=== PATIENT | female | born 1940 | race Caucasian/White ===

== ENCOUNTER → 2020-05-30 11:50 | Outpatient (CLI) | payer MEDICARE, SELFPAY ==
--- NOTE | 2020-05-30 | DI.CT.S_ITS ---
PROCEDURE: CT LE LT W CON INDICATIONS: Pain in left ankle and joints of left foot TECHNIQUE: Noncontrast 1-1.5 mm axial sections acquired from above the tibiotalar joint to the bottom of the calcaneus, with coronal and sagittal reformats. COMPARISON: [facility], CR, XR ANKLE 3 VIEWS WEIGHT BEARING LEFT, 05/15/2020, 14:33. [facility], CR, XR TOE(S) LEFT, 05/15/2020, 14:41. [facility], CT, CT LE RT WO CON, 05/30/2020, 12:07. FINDINGS: Image quality: Diagnostic. Bones: Post fixation changes are noted in distal fibular shaft and posterior lateral aspect of distal tibia. There is increased lucency surrounding surgical fixation hardware concerning for loosening. Oblique fracture involving distal fibular shaft is again seen with persistent diastasis at fracture site measures up to 4 millimeters in distance and corticated margin along fracture site concerning for nonunion. Osteoarthritic changes are noted throughout ankle, hindfoot, midfoot and forefoot joints. Finding is most prominent involving 1st MTP joint and articulation between 1st metatarsal head and sesamoids. No left foot fracture or dislocation. No gross suspicious intraosseous lesion. Well-defined plantar calcaneal enthesophyte is seen. Soft tissues: There is suggestion of moderate joint effusion. Thickened plantar fascia at its plantar calcaneal seen concerning for low-grade plantar fasciitis. Visualized ankle and foot tendons are grossly intact. IMPRESSION: 1. Fixation hardware are noted in distal fibular shaft and distal tibia with increased surrounding radiolucencies concerning for loosening of the hardware. 2. Persistent diastasis at distal fibular shaft fracture site concerning for nonunion. 3. Osteoarthritic changes throughout the ankle and foot. No other fracture or dislocation. No suspicious bony lesion. 4. Finding is concerning for low-grade plantar fasciitis at its plantar calcaneal insertion. Dictated by: Ted Peng M.D. on 05/30/2020 at 13:46 Approved by: Ted Peng M.D. on 05/30/2020 at 14:02
--- NOTE | 2020-05-30 12:00 | DI.CT.S_ITS ---
PROCEDURE: CT LE RT WO CON INDICATIONS: Pain in right ankle and joints of right foot TECHNIQUE: Noncontrast 1-1.5 mm axial sections acquired from above the tibiotalar joint to the bottom of the calcaneus, with coronal and sagittal reformats. COMPARISON: [facility], CR, XR ANKLE 3 VIEWS WEIGHT BEARING LEFT, 05/15/2020, 14:33. FINDINGS: Image quality: Excellent. Bones: Postsurgical changes are noted involving 2nd metatarsal head and 2nd proximal interphalangeal joint. No gross hardware loosening or failure is seen. Ankle and foot alignment is anatomic. Moderate osteoarthritic changes are noted involving tibiotalar joint with subcortical cystic area involving weight-bearing portion of talar dome concerning for small osteochondral lesions. Osteoarthritic changes are noted throughout right foot joints with joint space narrowing, subchondral sclerosis and marginal osteophyte formation more prominent at 1st MTP joint and involving articulation between 1st metatarsal head and sesamoids. No suspicious intraosseous lesion. Soft tissues: Plantar aponeurosis is intact. Achilles tendon is mildly thickened near its insertion of posterior calcaneus concerning for low-grade tendinosis. Mild ankle soft tissue swelling and edema is seen. Extensor, flexor, and peroneus tendons are grossly intact. IMPRESSION: 1. Osteoarthritic changes throughout the right ankle and foot as above. No fracture or dislocation. No suspicious intraosseous lesion. Concern for osteochondral lesions involving medial aspect of the talar dome weight-bearing portion. 2. Mildly thickened distal Achilles tendon concerning for low-grade tendinosis. No full-thickness ankle tendon per rupture. 3. Postsurgical changes in 2nd toe. No gross hardware complication. Dictated by: Ted Peng M.D. on 05/30/2020 at 13:16 Approved by: Ted Peng M.D. on 05/30/2020 at 13:30
== END ==
PROVIDERS: PCP Internal Medicine; Referring Provider Internal Medicine; Visit Provider Orthopaedic Surgery Foot and Ankle Surgery
DX: M25.572 Pain in left ankle and joints of left foot (principal)
CPT/HCPCS: 73700

== ENCOUNTER → 2020-10-24 14:54 | Outpatient (CLI) | payer OTHER, SELFPAY ==
[2020-10-24 15:28] LABS: COVID19 -Nasal RAPID Negative (Negative)
== END ==
PROVIDERS: PCP Internal Medicine; Visit Provider Physician Assistant
DX: Z20.822 Contact with and (suspected) exposure to COVID-19 (principal)
CPT/HCPCS: 87635; C9803

== ENCOUNTER 2020-10-26 06:04 | Day surgery (SDC) | payer OTHER, SELFPAY ==
[2020-10-26] VITALS (12 sets, daily range): BP systolic 126–181; BP diastolic 69–99; PULSE 70–75; RESP 12–16; TEMP 36.8–37; O2SAT 98–100; BMI 37.1
[2020-10-26] MEDS: LACTATED RINGERS 1,000 ML 100 ML IV ×2 (07:37→10:05)
[2020-10-26] MEDS: DEXTROSE 50 % IN WATER 25 GM/50 ML SYRINGE IV (07:39)
--- NOTE | 2020-10-26 07:45 | PM.PREOP ---
Pre-operative Note COVID-19 COVID-19 status: Negative Interval Note History & Physical reviewed/Exam performed by Physician: Yes Changes to H&P: No
[2020-10-26] MEDS: CEFAZOLIN 2 GM/100 ML FROZ.PIGGY IV (07:47)
--- NOTE | 2020-10-26 08:00 | DI.RAD.S_ITS ---
PROCEDURE: XR ANKLE LT MIN 3V INDICATIONS: HARDWARE REMOVAL, REPLACEMENT, SYNDESMOSIS REPAIR TECHNIQUE: 3 views of the ankle were acquired. COMPARISON: None. FINDINGS: Bones: Normal alignment after ORIF of a complex ankle fracture, with lateral fixation plate and transverse inter osseous screws establishing normal alignment at the ankle mortise joint. Soft tissues: No tibiotalar joint effusion. Achilles tendon appears normal. IMPRESSION: Normal alignment established after ORIF of previously documented left ankle fracture. Dictated by: Tee Charlton M.D. on 10/26/2020 at 16:52 Approved by: Tee Charlton M.D. on 10/26/2020 at 16:54
--- NOTE | 2020-10-26 08:26 | SUR.OPER ---
Supine on padded OR bed, head on pillow, arms secured on padded arm boards at <90 degrees abduction, legs uncrossed, safety belt at lower abdomen, tape over blanket over right lower leg. Left lower leg on folded blankets under drape and sterile bumps in control of the surgeon.
[2020-10-26] MEDS: BUPIVACAINE 0.25% W/ EPI (PF) 10 ML VIAL 20 ML INJ (08:44)
[2020-10-26] MEDS: OXYCODONE/ACETAMINOPHEN 5/325 TABLET 1 TAB PO (11:52)
--- NOTE | 2020-10-26 11:55 | P.OP_ITS ---
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 Revision procedure on syndesmosis left CPT code 85961 2. Repair fracture nonunion fibula left CPT code 24097 3. Removal implant deep left CPT code 54495 4. Repair ligament collateral left, deltoid ligament, secondary [id number] 5. Bone graft any area small dowel, left calcaneus CPT code 44096 -59 This procedure was performed with a modifier 22 for revision procedures: left ankle malunion with nonunion requiring expertise of Orthopedic foot and ankle fellowship trained surgeon. and required approximately twice along the standard ankle fracture Same procedure as scheduled: Yes Indications: The patient is an 80-year-old female had an history of an ankle fracture when she was in [place] in October of 2019 she had fixation with an intramedullary screw and 2 syndesmotic screws were placed. Unfortunately she went on to a nonunion and malunion with widening of her syndesmosis. She is indicated for revision fixation of her left fibula nonunion and syndesmotic disruption to avoid progression of her and diastasis hardware breakage a deformity and posttraumatic arthritis. Fortunately she has improved her hemoglobin A1c to 6.2. Her skin is also in good condition. She was indicated for revision of fixation with bone grafting of the fibular nonunion revision syndesmotic fixation possible deltoid ligament repair. The risks and benefits of the procedure have been discussed with the patient even opportunity to ask questions. The risks of surgery include but are not limited to infection, malunion, nonunion, persistence of pain, damage to nerves and blood vessels, posttraumatic arthritis, DVT, PE, cardiopulmonary complications and . The patient expressed a thorough understanding of the risks and benefits of surgery and has elected to proceed. Consent was signed in the office. She will be touchdown for no more than 20-40 lb weight-bearing for the 1st 2 weeks and then progress to weightbear as tolerated after 1st postop follow-up. We have arranged home health care to help her postoperatively. Surgeon: Nury Maria Click Yes if Unassisted: Yes Anesthesia Type: General, Peripheral nerve block and Local Operative Notes Findings: Distal fibula nonunion. Retained hardware intramedullary screw was prominent distally. This was removed. The attempted syndesmotic fixation had a buried screws that had sunken into the cortex transversing the oblique and fibula nonunion. This most this was a wide and fibrosed. Deltoid ligament was scarred with avulsion fragment in the medial clear space. This grossly widened with stress. Closure Type: primary Prosthetic devices, grafts, tissues, transplants, or devices: Fibula nonunion fixation: Arthrex 6 hole lateral locking fibula plate. 2.7 locking screws d istally. 3.5 cortical screws proximal Syndesmotic fixation : Tightrope XP, 2x 3.5 cortical screws Deltoid fixation: 3.5 corkscrew anchor Estimated Blood Loss (mL): 20 Blood products transfused: none Tourniquet time (min): 115 Procedure in detail: The patient was seen in the preoperative area the site of surgery was marked informed consent confirmed. The patient back to the operating room by the anesthesia team. A regional block was placed by the anesthesia team for postoperative pain control. Patient was positioned supine. All bony prominences well padded. Well-padded thigh tourniquet was placed. An SCD was placed on the contralateral lower extremity. The left lower extremities prepped and draped in the standard sterile fashion. Formal time-out procedure was performed confirming the patient's side and site of surgery administration of appropriate preoperative antibiotics. Implants were in the room. All were in agreement. Attention was turned to the calcaneal bone graft. Using an 8gauge jamshidi needle a small stab incision was made just anterior to the border of the Achilles at the lateral calcaneal tuberosity. This was confirmed under fluoroscopic imaging. The jamshidi eneedle was advanced through the cortex and then placed through several passes to retrieve a dowel cancellous bone for bone graft. Once this was completed the trocar was removed and a single nylon stitch was placed in the wound. This point the incisions were marked out on the skin the Esmarch was used for exsanguination the tourniquet was raised to 250 mm of mercury and stayed there for 1 hour and 55 minutes. Lateral incision was made over the fibula shaft this was taken down through the skin subcutaneous tissue. Periosteum was opened. Fibula was exposed including the nonunion site. This was debrided using a rongeur. It was grossly mobile. Next attention was turned to the distal end of the fibula where the distal tip of the intramedullary screw was exposed and removed. Next the C-arm was brought in to locate the 2 syndesmotic screws and these were buried by bone. The rongeur was used to remove the cortex in these areas the to small frag syndesmotic screws were then removed. The fibula and union was debrided using the rongeur and curette. The syndesmosis was exposed this was wide and it was cleared of scar tissue. At this point a bone graft was placed into the fibula nonunion site. Reduction clamp was used to reduce the fracture regaining rotation and length. This was pinned in place with provisional K-wires. X-rays were checked with fluoroscopy to confirm appropriate alignment. Then a 6 hole lateral locking plate from the Arthrex set was fit to the bone position appropriately. The bone was quite soft therefore a separate lag screw was not utilized but the plate was secured distally and proximally with BB tacks. Then locking screws were placed in the distal paddle. A nonlocking cortical screws were placed in the fibular shaft proximally reducing the fibular nonunion. At this point attention was turned to the medial aspect of the ankle and a separate incision was made from the medial malleolus towards the deltoid insertion. The medial gutter was cleaned out the deltoid was reflected off the medial malleolus. There was a separate avulsed bony fragment that was removed. Due to the quality of the tissue a corkscrew anchor was placed at the deltoid insertion in the at talus and this was brought through drill holes in the medial malleolus discs supplement the repair. This was completed with a 2 0 drill and a Daniels suture Passer to bring the sutures from the talus through the deltoid and then through the medial malleolus bone holes. These were then clamped and we returned our attention to the syndesmotic fixation. After the syndesmotic fixation reduction was obtained at the end of the case the deltoid was secured by tying it over the bone bridge and then reinforcing it with Vicryl Syndesmotic fixation. Once the fibula was out to length the syndesmosis was again further debrided of the scar. There was an open reduction of the syndesmosis was visualized a aptten of the Araceli sign anterior laterally. This was then held in place with thumb pressure followed by a temporary Yudi reduction clamp. This was confirmed on multiplanar fluoroscopy. Next the guidewire for the tightrope XP was placed followed by drilling and placement of the tight rope. Two additional 3.5 cortical screws were placed above the tight rope for additional syndesmotic fixation in this diabetic patient revision procedure. This provided excellent fixation stable alignment of the syndesmosis. Attention was turned to the deltoid ligament this was tied over the bone bridges as securing that was closing down of the medial clear space. The C-arm was brought in again and the final x-rays were taken followed by live fluoroscopy stress testing there was no widening on fluoroscopy and and no widening on clinical visual examination of the syndesmosis through the open reduction site. At this point the wound was irrigated. The remainder of the bone graft was packed around the nonunion site. The tourniquet was released hemostasis was achieved. The wound was closed in layers with a 2 O Vicryl, 4-0 Monocryl, 3-0 nylon suture. 10 cc of local anesthetic was supplemented the block medially around the saphenous distribution. Sterile dressings with Xeroform gauze and Webril were placed. Patient was placed into a well-padded use splint. Drapes removed patient was woken from anesthesia and taken to recovery room in good condition. There no immediate complications from this procedure. Complications: none Post-operative Condition: stable Disposition: PACU Plan for aftercare: Touch down or flatfoot weight-bearing weight of leg okay for balance. No more than 20-40 lb for the 1st 2 weeks. Elevate above the heart level as much as possible to help with swelling. Keep splint clean dry and intact. Follow-up in 2 weeks for wound check and x-rays. Will restart Xarelto on postoperative day 2
--- NOTE | 2020-10-26 12:39 | SUR.PHASEII ---
Pt given all dc instructions and rxs and verbalizes understanding, will go over all instructions and rxs with son as well. Pt wanting to sleep, Lights turned low and pt resting comfortably denies pain or nausea. Good range of motion with toes and sensation normal as well as cap refill
== END 2020-10-26 13:20 | disposition home or self-care (01) ==
PROVIDERS: PCP Internal Medicine; Referring Provider Internal Medicine; Visit Provider Orthopaedic Surgery Foot and Ankle Surgery
PROC: (CPT 27726; principal; 2020-10-26 07:45)
DX: S82.832K Other fracture of upper and lower end of left fibula, subsequent encounter for closed fracture with nonunion (principal); S93.432D Sprain of tibiofibular ligament of left ankle, subsequent encounter; E10.9 Type 1 diabetes mellitus without complications; S82.892P Other fracture of left lower leg, subsequent encounter for closed fracture with malunion; Z96.41 Presence of insulin pump (external) (internal); E66.9 Obesity, unspecified; F32.9 Major depressive disorder, single episode, unspecified; I48.91 Unspecified atrial fibrillation; Z79.01 Long term (current) use of anticoagulants
CPT/HCPCS: 27726; 27829; 27698; 20900; 73610; 76000; 82962; J0690; J2250; J2405; J2704; J3010

== ENCOUNTER 2021-07-03 16:22 | Emergency (ER) | payer OTHER, SELFPAY ==
[2021-07-03] VITALS (14 sets, daily range): BP systolic 146–197; BP diastolic 82–155; PULSE 96–116; RESP 16–29; TEMP 36.3; O2SAT 97–99; BMI 36.6
--- NOTE | 2021-07-03 16:54 | DI.RAD.S_ITS ---
PROCEDURE: XR CHEST 1V INDICATIONS: shortness of breath TECHNIQUE: One view of the chest was acquired. COMPARISON: None. FINDINGS: Surgical changes and devices: A cardiac pacemaker is seen with pulse generator in the left chest. Lungs and pleura: The lungs are mildly hyperexpanded, which can be seen in the setting of COPD. No focal airspace opacity is seen. There is mild blunting of the bilateral costophrenic angles, which may be related to hyperexpansion or trace pleural effusions. No pneumothorax is seen. Mediastinum: Mediastinal contours appear normal. Heart size is normal. Bones and chest wall: No suspicious bony lesions. Overlying soft tissues appear unremarkable. IMPRESSION: Mildly hyperexpanded lungs can be seen in the setting of COPD. No acute airspace opacity is seen. Questionable trace pleural effusions. Dictated by: Oscar Tejeda M.D. on 07/03/2021 at 17:18 Approved by: Oscar Tejeda M.D. on 07/03/2021 at 17:20
[2021-07-03 17:00] LABS: COVID19 -Nasal RAPID Negative (Negative)
[2021-07-03 17:08] LABS: Add Manual Diff / Slide Review NO; Basophils Absolute Auto 100 /uL (0-100); Basophils Percent Auto 1.1 % (0-2); Eosinophils Absolute Auto 200 /uL (0-450); Eosinophils Percent Auto 2.1 % (2-4); Hematocrit 36.6 % (36-46); Hemoglobin 11.7 g/dL (12.0-16.0); Lymphocytes Absolute Auto 1700 /uL (1100-4500); Lymphocytes Percent Auto 19.6 % (25-40); Mean Corpuscular Hemoglobin 27.8 PG (26-34); Mean Corpuscular Volume 86.9 fL (80-100); Monocytes Absolute Auto 900 /uL (0-900); Neutrophils Absolute Auto 6000 /uL (1500-7000); Neutrophils Percent Auto 67.2 % (50-75); Platelet Count 219 X10^3/uL (150-400); Red Blood Cell Count 4.21 X10^6/uL (4.0-5.2); Red Cell Distribution Width 15.7 % (11.6-14.8); White Blood Cell Count 8.9 X10^3/uL (4.5-11.0)
[2021-07-03 17:25] LABS: Alanine Aminotransferase 29 IU/L (<35); Albumin Globulin Ratio 1.3 (1.0-2.8); Alkaline Phosphatase 154 U/L (38-126); Aspartate Aminotransferase 31 IU/L (14-36); BUN Creatinine Ratio 17.6 (6-22); Bilirubin Total 0.4 mg/dL (0.2-1.3); Blood Urea Nitrogen 15 mg/dL (7-17); Carbon Dioxide 31 mmol/L (22-32); Chloride 105 mmol/L (98-107); Estimated Glomerular Filt Rate > 60.0 mL/min (>60); Glucose 68 mg/dL (80-110); HEMOLYSIS < 15 (0-50); Sodium 139 mmol/L (137-145)
[2021-07-03 17:48] LABS: Creatine Kinase 47 U/L (30-135); Lipase 14 U/L (23-300)
[2021-07-03 18:03] LABS: NT-proBNP (BNP-Adult 18+) 2720 pg/mL (<450); Troponin I < 0.012 ng/mL (0.01-0.034)
--- NOTE | 2021-07-03 18:50 | ED.SOB ---
HPI - SOB/Dyspnea General Chief Complaint: Shortness of Breath/Dyspnea Stated Complaint: came from Dr Mathis Upper resp symptoms Time Seen by Provider: 07/03/21 16:53 Source: patient Mode of arrival: Wheelchair Limitations: no limitations History of Present Illness HPI Narrative: Patient is a 81-year-old female history of atrial fibrillation on amiodarone and Xarelto diabetes. 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 It is actually Better when lying down. She maybe has noticed some increasing shortness of breath with exertion. She has no chest pain. She has had diarrhea but she has a history of IBS. She said yesterday was a bad day she had multiple episodes of diarrhea and a little bit this morning as well. But she is not out of the normal for her. She overall does not feel too bad and is anxious to go home with. However Cardiology was concerned for possible COVID versus congestive heart failure. She had a routine appointment with cardiology today, he was concered for incrased shortness of breath. Related Data Home Medications Medication Instructions Recorded Confirmed amiodarone 200 mg tablet 200 mg PO DAILY 10/26/20 10/26/20 atorvastatin 80 mg tablet 80 mg PO BEDTIME 10/26/20 10/26/20 cholecalciferol (vitamin D3) 25 25 mcg PO DAILY 10/26/20 10/26/20 mcg (1,000 unit) tablet (Vitamin D3) famotidine 20 mg tablet 20 mg PO DAILY 10/26/20 10/26/20 hydroxyzine HCl 25 mg tablet 25 mg PO QID 10/26/20 10/26/20 insulin lispro 100 unit/mL 1 sliding scale dose SUBCUT 10/26/20 10/26/20 subcutaneous cartridge (Humalog USEASDIRECTD U-100 Insulin) losartan 100 mg tablet 100 mg PO DAILY 10/26/20 10/26/20 metoprolol succinate 25 mg 25 mg PO DAILY 10/26/20 10/26/20 tablet,extended release 24 hr paroxetine HCl 20 mg tablet 20 mg PO DAILY 10/26/20 10/26/20 rivaroxaban 20 mg tablet (Xarelto) 20 mg PO DAILY 10/26/20 10/26/20 Previous Rx's Medication Instructions Recorded acetaminophen 500 mg tablet 1,000 mg PO Q8HR PRN #60 tab 10/26/20 docusate sodium 100 mg capsule 100 mg PO BID #30 cap 10/26/20 (Colace) gabapentin 300 mg capsule 300 mg PO TID #30 cap 10/26/20 oxycodone 5 mg tablet 5 - 10 mg PO Q4H PRN #42 tab 10/26/20 polyethylene glycol 3350 17 gram 17 g PO DAILY PRN #14 ea 10/26/20 oral powder packet (Miralax) furosemide 20 mg tablet (Lasix) 20 mg PO DAILY #3 tab 07/03/21 Allergies Allergy/AdvReac Type Severity Reaction Status Date / Time iodine Allergy Severe Swelling Verified 07/03/21 16:34 of Lip/Tongue/Throat shellfish derived Allergy Severe Swelling Verified 10/26/20 07:31 of Lip/Tongue/Throat Penicillins Allergy Intermediate Swelling Verified 07/03/21 16:34 of Lip/Tongue/Throat Review of Systems Review of Systems Narrative: GENERAL: Denies chills, fatigue, malaise, fever, sweats, travel HEENT: Denies sinus pain, ear pain, sore throat, difficulty swallowing, neck pain RESPIRATORY: See HPI CARDIOVASCULAR: AFib GASTROINTESTINAL: Denies nausea, vomiting, abdominal pain, diarrhea, constipation, melena. : Denies dysuria, frequency, incontinence, hematuria, urinary retention, flank pain. MUSCULOSKELETAL: Denies weakness, joint pain, or bony pain SKIN: No rash, no erythema, no pruritus NEUROLOGIC: Denies weakness, dizziness, headache, numbness, change in speech, confusion PSYCHIATRIC: No concerning psychosocial issues. 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 Coronary artery disease Depression Former smoker Hypertension Insulin pump in place Left sided sciatica Obesity Pacemaker Syndesmotic disruption of left ankle Thyroid disease Type 1 diabetes mellitus without complication Social History household members: other Smoking Status: Former smoker alcohol intake: current Smoking Status: Former smoker alcohol intake frequency: holidays/special occasions only Substance Use Type: marijuana Exam Initial Vital Signs Initial Vital Signs: Vital Signs Temperature 97.4 F L 07/03/21 16:34 Pulse Rate 96 H 07/03/21 16:34 Respiratory Rate 18 07/03/21 16:34 Blood Pressure 146/94 H 07/03/21 16:34 Pulse Oximetry 97 07/03/21 16:34 GENERAL: Alert 81-year-old female does not appear in any acute distress HEENT: Head atraumatic,EOMI, pupils reactive, face symmetric, moist mucous membranes CARDIOVASCULAR: Regular rate and rhythm without murmurs, rubs or gallops. RESPIRATORY: Crackles at bases, no tachypnea or significant respiratory distress ABDOMEN: Soft, nontender. Normoactive bowel sounds all 4 quadrants. No guarding or rebound. EXTREMITIES: Normal range of motion, no clubbing or edema. Neurovascularly intact NEUROLOGICAL: Alert and oriented x4.Normal gait and speech. SKIN: Warm, dry, no laceration, no petechiae, no rashes or lesions. Course Orders Ordered: ED Orders 07/03/21 16:40 COVID19 -Nasal swab/Pre-Proc Stat 07/03/21 16:54 XR chest 1V Stat EKG-12 Lead Stat 07/03/21 17:02 Complete Blood Count AUTO DIFF Stat Comprehensive Metabolic Panel Stat Lipase Stat NT-proBNP (BNP-Adult 18+) Stat Troponin & CK Cardiac Panel Stat Discontinued Medications Furosemide (Furosemide 40 Mg/4 Ml Vial) 20 mg IV NOW ONE Stop: 07/03/21 18:55 Last Admin: 07/03/21 19:03 Dose: 20 mg Documented by: PAPI Vital Signs Vital signs: Vital Signs - 8 hr 07/03/21 16:50 07/03/21 16:52 07/03/21 17:00 Pulse Rate 116 H 101 H 100 H Respiratory Rate Blood Pressure 174/90 H Pulse Oximetry 97 97 07/03/21 17:03 07/03/21 17:30 07/03/21 17:31 Pulse Rate 103 H 99 H 101 H Respiratory Rate 16 20 Blood Pressure 189/95 H 155/113 H Pulse Oximetry 97 97 97 07/03/21 18:00 07/03/21 18:01 07/03/21 18:30 Pulse Rate 104 H 105 H 103 H Respiratory Rate 21 19 25 H Blood Pressure 169/82 H Pulse Oximetry 98 98 99 07/03/21 18:31 07/03/21 19:00 07/03/21 19:01 Pulse Rate 101 H 101 H 104 H Respiratory Rate 29 H 19 20 Blood Pressure 188/110 H 197/155 H Pulse Oximetry 99 98 97 07/03/21 19:08 Pulse Rate 100 H Respiratory Rate 23 Blood Pressure 175/96 H Pulse Oximetry 97 MDM - SOB/Dyspnea Lab Data Result diagrams: 07/03/21 17:02 07/03/21 17:02 Labs: Lab Results 07/03/21 07/03/21 07/03/21 Range/Units 16:40 17:02 17:02 WBC 8.9 (4.5-11.0) X10^3/uL RBC 4.21 (4.0-5.2) X10^6/uL Hgb 11.7 L (12.0-16.0) g/dL Hct 36.6 (36-46) % MCV 86.9 (80-100) fL MCH 27.8 (26-34) PG MCHC 32.0 (30-36) % RDW 15.7 H (11.6-14.8) % Plt Count 219 (150-400) X10^3/uL Neut % (Auto) 67.2 (50-75) % Lymph % (Auto) 19.6 L (25-40) % [place] % (Auto) 10.0 (3-14) % Eos % (Auto) 2.1 (2-4) % Baso % (Auto) 1.1 (0-2) % Neut # (Auto) 6000 (4473-1056) /uL Lymph # (Auto) 1700 (8306-2313) /uL [place] # (Auto) 900 (0-900) /uL Eos # (Auto) 200 (0-450) /uL Baso # (Auto) 100 (0-100) /uL Sodium 139 (137-145) mmol/L Potassium 4.0 (3.4-5.1) mmol/L Chloride 105 (98-107) mmol/L Carbon Dioxide 31 (22-32) mmol/L BUN 15 (7-17) mg/dL Creatinine 0.85 (0.52-1.04) mg/dL Estimated GFR > 60.0 (>60) mL/min BUN/Creatinine Ratio 17.6 (6-22) Glucose 68 L (80-110) mg/dL Calcium 9.0 (8.4-10.2) mg/dL Total Bilirubin 0.4 (0.2-1.3) mg/dL AST 31 (14-36) IU/L ALT 29 (<35) IU/L Alkaline Phosphatase 154 H (38-126) U/L Total Creatine Kinase (30-135) U/L CK-MB (CK-2) CK-MB (CK-2) Rel Index Troponin I (0.01-0.034) ng/mL NT-Pro-B Natriuret Pep (<450) pg/mL Total Protein 7.0 (6.3-8.2) g/dL Albumin 4.0 (3.5-5.0) g/dL Globulin 3.0 (1.7-4.1) g/dL Albumin/Globulin Ratio 1.3 (1.0-2.8) Lipase (23-300) U/L SARS-CoV-2 (PCR) Negative (Negative) 07/03/21 Range/Units 17:02 WBC (4.5-11.0) X10^3/uL RBC (4.0-5.2) X10^6/uL Hgb (12.0-16.0) g/dL Hct (36-46) % MCV (80-100) fL MCH (26-34) PG MCHC (30-36) % RDW (11.6-14.8) % Plt Count (150-400) X10^3/uL Neut % (Auto) (50-75) % Lymph % (Auto) (25-40) % [place] % (Auto) (3-14) % Eos % (Auto) (2-4) % Baso % (Auto) (0-2) % Neut # (Auto) (5134-7247) /uL Lymph # (Auto) (3442-6477) /uL [place] # (Auto) (0-900) /uL Eos # (Auto) (0-450) /uL Baso # (Auto) (0-100) /uL Sodium (137-145) mmol/L Potassium (3.4-5.1) mmol/L Chloride (98-107) mmol/L Carbon Dioxide (22-32) mmol/L BUN (7-17) mg/dL Creatinine (0.52-1.04) mg/dL Estimated GFR (>60) mL/min BUN/Creatinine Ratio (6-22) Glucose (80-110) mg/dL Calcium (8.4-10.2) mg/dL Total Bilirubin (0.2-1.3) mg/dL AST (14-36) IU/L ALT (<35) IU/L Alkaline Phosphatase (38-126) U/L Total Creatine Kinase 47 (30-135) U/L CK-MB (CK-2) TNP CK-MB (CK-2) Rel Index TNP Troponin I < 0.012 (0.01-0.034) ng/mL NT-Pro-B Natriuret Pep 2720 H (<450) pg/mL Total Protein (6.3-8.2) g/dL Albumin (3.5-5.0) g/dL Globulin (1.7-4.1) g/dL Albumin/Globulin Ratio (1.0-2.8) Lipase 14 L (23-300) U/L SARS-CoV-2 (PCR) (Negative) Point of Care Testing Glucose POC 66 Imaging Data Chest x-ray: Radiologist's Impression: PROCEDURE:? XR CHEST 1V ? INDICATIONS:? shortness of breath ? TECHNIQUE:? One view of the chest was acquired.? ? COMPARISON:? None. ? FINDINGS:? ? Surgical changes and devices:? A cardiac pacemaker is seen with pulse generator in the left chest. ? Lungs and pleura:? The lungs are mildly hyperexpanded, which can be seen in the setting of COPD.? No focal airspace opacity is seen.? There is mild blunting of the bilateral costophrenic angles, which may be related to hyperexpansion or trace pleural effusions.? No pneumothorax is seen. ? Mediastinum:? Mediastinal contours appear normal.? Heart size is normal.? ? Bones and chest wall:? No suspicious bony lesions.? Overlying soft tissues appear unremarkable.? ? IMPRESSION:? Mildly hyperexpanded lungs can be seen in the setting of COPD.? No acute airspace opacity is seen.? Questionable trace pleural effusions. ? ? Dictated by: Oscar Tejeda M.D. on 07/03/2021 at 17:18 ? ? ECG Data Interpretation: Atrial flutter Rate [address] changes or T-wave inversions no priors to compare MDM Narrative Medical decision making narrative: Patient is experiencing some shortness of breath. She has an elevated BNP of 2700 no prior history of congestive heart failure. Has symptoms seem to be most consistent with congestive heart failure although she does not seem to be experiencing any orthopnea. She has very little peripheral edema as well. His she is given 1 dose of Lasix in the ED which does seem to help. This is unlikely pulmonary embolism although that was considered she is on Xarelto. She is not hypoxic. Overall does not seem to be dehydrated, BUN and creatinine are within normal limits. Discharge Plan Departure Patient Disposition: Home Clinical Impression: Congestive heart failure Qualifiers: Heart failure type: unspecified Heart failure chronicity: acute Qualified Code(s): I50.9 - Heart failure, unspecified Instructions: Heart Failure Activity Restrictions/Additional Instructions: *You have been diagnosed with congestive heart failure *What to do: At this time you have some extra fluid on your lungs. You will need to follow up with Dr. Mathis in regards to this have more testing. *Continue to take medications as directed Lasix 20 mg a day for or 3 days start tomorrow *Follow up with your primary care provider in 2-3 days *Return to ER if you should have increasing shortness of breath, chest pain, palpitation any new, worsening or concerning symptoms Prescriptions: New furosemide [Lasix] 20 mg tablet 20 mg PO DAILY Qty: 3 RF: 0 No Action Xarelto 20 mg Tablet 20 mg PO DAILY RF: 0 oxycodone 5 mg tablet 5 - 10 mg PO Q4H PRN (Reason: pain) Qty: 42 RF: 0 acetaminophen 500 mg tablet 1,000 mg PO Q8HR PRN (Reason: pain) Qty: 60 RF: 1 docusate sodium [Colace] 100 mg capsule 100 mg PO BID Qty: 30 RF: 1 polyethylene glycol 3350 [Miralax] 17 gram powder in packet 17 g PO DAILY PRN (Reason: constipation) Qty: 14 RF: 0 gabapentin 300 mg capsule 300 mg PO TID Qty: 30 RF: 1 cholecalciferol (vitamin D3) [Vitamin D3] 25 mcg (1,000 unit) Tablet 25 mcg PO DAILY RF: 0 paroxetine HCl 20 mg Tablet 20 mg PO DAILY RF: 0 metoprolol succinate 25 mg Tablet Extended Release 24 Hr 25 mg PO DAILY RF: 0 losartan 100 mg Tablet 100 mg PO DAILY RF: 0 hydroxyzine HCl 25 mg Tablet 25 mg PO QID RF: 0 Humalog U-100 Insulin 100 unit/mL Cartridge 1 sliding scale dose SUBCUT USEASDIRECTD RF: 0 famotidine 20 mg Tablet 20 mg PO DAILY RF: 0 atorvastatin 80 mg Tablet 80 mg PO BEDTIME RF: 0 amiodarone 200 mg Tablet 200 mg PO DAILY RF: 0 Referrals: Harvey Lala MD [Primary Care Provider] -
[2021-07-03] MEDS: FUROSEMIDE 40 MG/4 ML VIAL 20 MG IV (19:03)
== END 2021-07-03 19:56 | disposition home or self-care (01) ==
PROVIDERS: Emergency Medicine; Emergency Provider Emergency Medicine; PCP Internal Medicine
DX: I50.9 Heart failure, unspecified (principal); R19.7 Diarrhea, unspecified; Z20.822 Contact with and (suspected) exposure to COVID-19
CPT/HCPCS: 36415; 71045; 80053; 82550; 82962; 83690; 83880; 84484; 85025; 87635; 93005; 93010; 96374; 99284; C9803; J1940

== ENCOUNTER 2022-02-26 14:33 | Emergency (ER) | payer OTHER, SELFPAY ==
--- NOTE | 2022-02-26 14:37 | DI.RAD.S_ITS ---
PROCEDURE: XR CHEST 1V INDICATIONS: chest pain TECHNIQUE: One view of the chest was acquired. COMPARISON: [facility], CT, CT CHEST WITHOUT CONTRAST, 09/23/2021, 19:16. [facility], CR, XR CHEST 1V, 07/03/2021, 17:02. FINDINGS: Surgical changes and devices: Left pacemaker with multiple leads. A 2nd electronic device over the left chest. Lungs and pleura: Lungs appear clear. No pleural effusions or pneumothorax. Mediastinum: Mediastinal contours appear unchanged. Heart size appears prominent. Bones and chest wall: No suspicious bony lesions. Overlying soft tissues appear unremarkable. IMPRESSION: No acute cardiopulmonary abnormality. The previously seen right lower lobe pulmonary nodule is not appreciated. Follow-up CT and/or PET were previously recommended. This could be performed as an outpatient. Dictated by: Ganga Dejesus M.D. on 02/26/2022 at 15:31 Approved by: Ganga Dejesus M.D. on 02/26/2022 at 15:34
[2022-02-26 14:45] VITALS: BP 177/81; PULSE 70; RESP 16; TEMP 36.6; O2SAT 99; BMI 33.9
--- NOTE | 2022-02-26 14:51 | DI.RAD.S_ITS ---
PROCEDURE: XR TOE RT MIN 2V INDICATIONS: fall TECHNIQUE: 3 views of the 2nd toe(s) acquired. COMPARISON: [facility], ANDREW, XR ANKLE 3 VIEWS WEIGHT BEARING LEFT, 03/20/2021, 11:23. [facility] [place], CR, XR TOE(S) LEFT, 05/15/2020, 14:41. FINDINGS: Bones: 2nd digit distal phalanx corner fracture seen on the lateral projection. Mild displacement. No dislocations. No suspicious bony lesions. Screw transversing the 2nd digit PIP joint. Screw within the 2nd digit metatarsal head. Soft tissues: No suspicious soft tissue densities. IMPRESSION: 2nd digit distal phalanx corner fracture. Dictated by: Ganga Dejesus M.D. on 02/26/2022 at 15:38 Approved by: Ganga Dejesus M.D. on 02/26/2022 at 15:40
--- NOTE | 2022-02-26 14:51 | DI.RAD.S_ITS ---
PROCEDURE: XR WRIST RT MIN 3V INDICATIONS: fall TECHNIQUE: 4 views of the wrist were acquired. COMPARISON: None. FINDINGS: Bones: No fractures or dislocations. No suspicious bony lesions. Degenerative change most pronounced at the 1st CMC joint. Scaphoid view: Intact. Soft tissues: No suspicious soft tissue calcifications. Vascular calcifications. IMPRESSION: No acute osseous abnormality. Dictated by: Ganga Dejesus M.D. on 02/26/2022 at 15:35 Approved by: Ganga Dejesus M.D. on 02/26/2022 at 15:38
--- NOTE | 2022-02-26 14:54 | DI.RAD.S_ITS ---
PROCEDURE: XR FOREARM RT 2V INDICATIONS: fall TECHNIQUE: 2 views of the forearm were acquired. COMPARISON: None. FINDINGS: Bones: No fractures or dislocations. No suspicious bony lesions. Degenerative change at the 1st CMC joint. Soft tissues: No suspicious soft tissue calcifications or masses. IMPRESSION: No acute osseous abnormality. If there is pain at the elbow joint consider dedicated elbow radiographs. Dictated by: Ganga Dejesus M.D. on 02/26/2022 at 15:34 Approved by: Ganga Dejesus M.D. on 02/26/2022 at 15:35
--- NOTE | 2022-02-26 14:55 | PC.NURSE ---
ice pack applied in triage
[2022-02-26 16:16] VITALS: PULSE 70; O2SAT 99
[2022-02-26 16:18] VITALS: BP 160/75; PULSE 70; O2SAT 98
[2022-02-26 16:30] VITALS: BP 153/81; PULSE 70; O2SAT 99
[2022-02-26] MEDS: LIDOCAINE PATCH 1 EACH ADH..PATCH TOP (16:58)
[2022-02-26] MEDS: ACETAMINOPHEN 325 MG TABLET 975 MG PO (16:59)
[2022-02-26 17:00] VITALS: PULSE 70; O2SAT 99
[2022-02-26 17:14] VITALS: BP 167/91; PULSE 59; O2SAT 97
--- NOTE | 2022-02-26 17:56 | ED.TRAUMA ---
HPI - Trauma <Rosalie Neves [employer] - Last Filed: 02/26/22 20:00> General Chief Complaint: Extremity Injury, Upper Stated Complaint: Fell and hurt right arm on Thursday- takes thinners Time Seen by Provider: 02/26/22 16:11 Source: patient Mode of arrival: Ambulatory History of Present Illness HPI narrative: This is a 81-year-old female who is anticoagulated on Eliquis presents to the emergency department after a fall she had two days ago where she fell onto right arm injuring her right forearm, wrist right 2nd toe had swelling with ecchymosis of her right arm and 2nd toe since this happened. She denies any muscle aches or muscle spasms, denies any sensation changes, she endorses slightly decreased wrist flexion and extension due to her swollen forearm. She denies any open wounds, she denies hitting her head or having any emesis afterwards. Patient denies any other injuries, states that she is ambulatory, she has a history of diabetes and sees for Podiatry. She denies any new weakness of her right arm Related Data Home Medications Medication Instructions Recorded Confirmed amiodarone 200 mg tablet 200 mg PO DAILY 10/26/20 10/26/20 atorvastatin 80 mg tablet 80 mg PO BEDTIME 10/26/20 10/26/20 cholecalciferol (vitamin D3) 25 25 mcg PO DAILY 10/26/20 10/26/20 mcg (1,000 unit) tablet (Vitamin D3) famotidine 20 mg tablet 20 mg PO DAILY 10/26/20 10/26/20 hydroxyzine HCl 25 mg tablet 25 mg PO QID 10/26/20 10/26/20 insulin lispro 100 unit/mL 1 sliding scale dose SUBCUT 10/26/20 10/26/20 subcutaneous cartridge (Humalog USEASDIRECTD U-100 Insulin) losartan 100 mg tablet 100 mg PO DAILY 10/26/20 10/26/20 metoprolol succinate 25 mg 25 mg PO DAILY 10/26/20 10/26/20 tablet,extended release 24 hr paroxetine HCl 20 mg tablet 20 mg PO DAILY 10/26/20 10/26/20 rivaroxaban 20 mg tablet (Xarelto) 20 mg PO DAILY 10/26/20 10/26/20 Previous Rx's Medication Instructions Recorded acetaminophen 500 mg tablet 1,000 mg PO Q8HR PRN #60 tab 10/26/20 docusate sodium 100 mg capsule 100 mg PO BID #30 cap 10/26/20 (Colace) gabapentin 300 mg capsule 300 mg PO TID #30 cap 10/26/20 oxycodone 5 mg tablet 5 - 10 mg PO Q4H PRN #42 tab 10/26/20 polyethylene glycol 3350 17 gram 17 g PO DAILY PRN #14 ea 10/26/20 oral powder packet (Miralax) furosemide 20 mg tablet (Lasix) 20 mg PO DAILY #3 tab 07/03/21 diclofenac sodium 3 % topical gel 1 applic TOPICAL BID PRN #100 g 02/26/22 lidocaine 5 % topical patch 1 patch TOPICAL DAILY #15 ea 02/26/22 Allergies Allergy/AdvReac Type Severity Reaction Status Date / Time iodine Allergy Severe Swelling Verified 02/26/22 14:49 of Lip/Tongue/Throat shellfish derived Allergy Severe Swelling Verified 02/26/22 14:49 of Lip/Tongue/Throat Penicillins Allergy Intermediate Swelling Verified 02/26/22 14:49 of Lip/Tongue/Throat Review of Systems <VIKKI Rouse - Last Filed: 02/26/22 20:00> Review of Systems Narrative: General: denies fever, chills Head/Neck: denies headache, neck pain Eyes: denies visual changes, eye pain Cardio: denies chest pain, palpitations Respiratory: denies shortness of breath, cough GI: denies abdominal pain, nausea, vomiting, or diarrhea : denies dysuria, hematuria or flank pain MSK: denies new joint pain, muscle weakness, endorses ecchymosis, tenderness and edema to right forearm, 2nd toe right foot Skin: denies rash, itching or wound Neuro: denies numbness, tingling, dizziness Patient History <VIKKI Rouse - Last Filed: 02/26/22 20:00> Medical History Afib Arthritis 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 General: cooperative, comfortable, in no acute distress, well groomed Head: atraumatic, symmetrical facial expressions Neck: supple Eyes: equal round and reactive, EOMI, conjunctiva normal Nose: nares patent, no rhinorrhea Mouth/Throat: moist mucus membranes Cardiovascular: regular rate and rhythm, no peripheral edema, warm extremities Respiratory: normal effort, able to speak in complete sentences, no audible wheezing, stridor, or rales. No retractions or tachypnea. GI: abdomen soft, non-tender to palpation, non-distended, no masses, no exquisite tenderness with exam, without guarding or rebound. MSK: moves all extremities, neurovascularly intact, no weakness, normal tone, right forearm with moderate amount of ecchymosis on the anterior aspect of her forearm from her elbow to her wrist, wrist extension is moving mildly decreased due to pain and edema, wrist flexion is intact full range of motion. Patient has mild edema, no erythema or fluctuance, no streaking, tenderness with some palpable hematomas over the medial wrist on the palmar aspect, radial pulse 2 +, cap refill in her fingers less than 2 seconds, no tenderness over metacarpals, no tenderness over distal radius or ulna, no tenderness over olecranon, elbow flexion extension intact without deficit, no tenderness to right shoulder, full range of motion of right shoulder, right 2nd toe with distal ecchymosis and mild erythema, patient has history of pin in 2nd toe, toe does not bend. Skin: brisk capillary refill, no rash, no erythema Neuro: normal speech and cognition, A&O x3 Psych: mental status is grossly normal, congruent mood, normal affect, pleasant and cooperative Initial Vital Signs Initial Vital Signs: Vital Signs Temperature 97.9 F 02/26/22 14:45 Pulse Rate 70 02/26/22 14:45 Respiratory Rate 16 02/26/22 14:45 Blood Pressure 177/81 H 02/26/22 14:45 Pulse Oximetry 99 02/26/22 14:45 <Menea Shay DO - Last Filed: 03/06/22 07:31> Initial Vital Signs Initial Vital Signs: Vital Signs Temperature 97.9 F 02/26/22 14:45 Pulse Rate 70 02/26/22 14:45 Respiratory Rate 16 02/26/22 14:45 Blood Pressure 177/81 H 02/26/22 14:45 Pulse Oximetry 99 02/26/22 14:45 Procedures <VIKKI Rouse - Last Filed: 02/26/22 20:00> Orthopedic Splinting/Casting Injury #1: Side: right Upper Extremity Injury Location: elbow, forearm, wrist and hand Upper Extremity Immobilizer: sling/shoulder immobilizer and thumb spica Lower Extremity Immobilizer: post-op shoe Post splinting neuro exam: intact Post splinting vascular exam: intact Placed by: Nursing Course <VIKKI Rouse - Last Filed: 02/26/22 20:00> Orders Ordered: Discontinued Medications Acetaminophen (Acetaminophen 325 Mg Tablet) 975 mg PO NOW ONE Stop: 02/26/22 16:46 Last Admin: 02/26/22 16:59 Dose: 975 mg Documented by: KARIME Lidocaine (Lidocaine Patch 1 Each Adh..Patch) 1 each TOP NOW ONE Stop: 02/26/22 16:46 Last Admin: 02/26/22 16:58 Dose: 1 each Documented by: KARIME Vital Signs Vital signs: Vital Signs - 8 hr 02/26/22 14:45 02/26/22 16:16 02/26/22 16:18 Temperature 97.9 F Pulse Rate 70 70 70 Respiratory Rate 16 Blood Pressure 177/81 H 160/75 H Pulse Oximetry 99 99 98 02/26/22 16:30 02/26/22 17:00 02/26/22 17:14 Temperature Pulse Rate 70 70 59 L Respiratory Rate Blood Pressure 153/81 H 167/91 H Pulse Oximetry 99 99 97 <Meena Shay DO - Last Filed: 03/06/22 07:31> Orders Ordered: Discontinued Medications Acetaminophen (Acetaminophen 325 Mg Tablet) 975 mg PO NOW ONE Stop: 02/26/22 16:46 Last Admin: 02/26/22 16:59 Dose: 975 mg Documented by: KARIME Lidocaine (Lidocaine Patch 1 Each Adh..Patch) 1 each TOP NOW ONE Stop: 02/26/22 16:46 Last Admin: 02/26/22 16:58 Dose: 1 each Documented by: KARIME Vital Signs Vital signs: Vital Signs - 8 hr 02/26/22 14:45 02/26/22 16:16 02/26/22 16:18 Temperature 97.9 F Pulse Rate 70 70 70 Respiratory Rate 16 Blood Pressure 177/81 H 160/75 H Pulse Oximetry 99 99 98 02/26/22 16:30 02/26/22 17:00 02/26/22 17:14 Temperature Pulse Rate 70 70 59 L Respiratory Rate Blood Pressure 153/81 H 167/91 H Pulse Oximetry 99 99 97 MDM - Trauma <Rosalie Neves [facility] - Last Filed: 02/26/22 20:00> Imaging Data Extremity x-ray #1: Radiologist's Impression: PROCEDURE:? XR FOREARM RT 2V ? INDICATIONS:? fall ? TECHNIQUE:? 2 views of the forearm were acquired.? ? COMPARISON:? None. ? FINDINGS:? ? Bones:? No fractures or dislocations.? No suspicious bony lesions.? Degenerative change at the 1st CMC joint.? ? Soft tissues:? No suspicious soft tissue calcifications or masses.? ? ? IMPRESSION:? No acute osseous abnormality. ? If there is pain at the elbow joint consider dedicated elbow radiographs. ? ? ? Dictated by: Ganga Dejesus M.D. on 02/26/2022 at 15:34 ? ? Approved by: Ganga Dejesus M.D. on 02/26/2022 at 15:35 ? Extremity x-ray #2: Radiologist's Impression: PROCEDURE:? XR WRIST RT MIN 3V ? INDICATIONS: fall ? TECHNIQUE:? 4 views of the wrist were acquired.? ? COMPARISON:? None. ? FINDINGS:? ? Bones:? No fractures or dislocations.? No suspicious bony lesions.? Degenerative change most pronounced at the 1st CMC joint.? ? Scaphoid view:? Intact. ? Soft tissues:? No suspicious soft tissue calcifications.? Vascular calcifications.? ? IMPRESSION:? No acute osseous abnormality. ? ? Dictated by: Ganga Dejesus M.D. on 02/26/2022 at 15:35 ? ? Approved by: Ganga Dejesus M.D. on 02/26/2022 at 15:38 ? Extremity x-ray #3: Radiologist's Impression: PROCEDURE:? XR TOE RT MIN 2V ? INDICATIONS:? fall ? TECHNIQUE:? 3 views of the 2nd toe(s) acquired.? ? COMPARISON:? [facility] [place], CR, XR ANKLE 3 VIEWS WEIGHT BEARING LEFT, 03/20/2021, 11:23.? [facility] [place], CR, XR TOE(S) LEFT, 05/15/2020, 14:41. ? FINDINGS:? ? Bones:? 2nd digit distal phalanx corner fracture seen on the lateral projection.? Mild displacement.? No dislocations.? No suspicious bony lesions.? Screw transversing the 2nd digit PIP joint.? Screw within the 2nd digit metatarsal head.? ? Soft tissues:? No suspicious soft tissue densities.? ? IMPRESSION:? 2nd digit distal phalanx corner fracture. ? ? Dictated by: Ganga Dejesus M.D. on 02/26/2022 at 15:38 ? ? Approved by: Ganga Dejesus M.D. on 02/26/2022 at 15:40 ? Chest x-ray: Radiologist's Impression: PROCEDURE:? XR CHEST 1V ? INDICATIONS:? chest pain ? TECHNIQUE:? One view of the chest was acquired.? ? COMPARISON:? [facility] [place], CT, CT CHEST WITHOUT CONTRAST, 09/23/2021, 19:16.? [facility], CR, XR CHEST 1V, 07/03/2021, 17:02. ? FINDINGS:? ? Surgical changes and devices:? Left pacemaker with multiple leads.? A 2nd electronic device over the left chest. ? Lungs and pleura:? Lungs appear clear.? No pleural effusions or pneumothorax.? ? Mediastinum:? Mediastinal contours appear unchanged.? Heart size appears prominent.? ? Bones and chest wall:? No suspicious bony lesions.? Overlying soft tissues appear unremarkable.? ? IMPRESSION:? No acute cardiopulmonary abnormality. ? The previously seen right lower lobe pulmonary nodule is not appreciated.? Follow-up CT and/or PET were previously recommended.? This could be performed as an outpatient. ? ? ? Dictated by: Ganga Dejesus M.D. on 02/26/2022 at 15:31 ? ? Approved by: Ganga Dejesus M.D. on 02/26/2022 at 15:34 ? [facility] Narrative Medical decision making narrative: This is an 81-year-old female who presents to the emergency department two days after a ground level fall onto her right arm and right side after she tripped on a dog leash and fell onto her right wrist. Patient is on Eliquis, denies hitting her head or having any neck pain, she did not loss consciousness, she denies shortness of breath, difficulty breathing, chest pain, or difficulty ambulating. Patient has ecchymosis of her right forearm on the anterior aspect from the wrist up to proximal forearm without erythema, fluctuance, or deformity. X-ray of right wrist, forearm, and chest are all without any fractures or acute abnormality. Patient's right foot x-ray is positive for a distal phalanx corner fracture of the 2nd digit. Patient has a history of diabetes and sees Dr. Wright from Podiatry. Patient was fitted in a postop shoe, she also was fitted in a right wrist thumb spica Velcro wrist splint, sling for elevation, and encouraged to follow-up with podiatry and with orthopedics in one week if her right forearm is not improving. She does have a moderate amount of ecchymosis to the right forearm but it appears to be improving without any large hematomas or fluid collections. She does not have any tenderness over the metacarpals, no tenderness over the scaphoid or distal radius/ulna, noted tenderness over proximal radius, no tenderness over olecranon. Encourage close follow-up with PCP as needed, and orthopedics follow-up for right wrist/forearm injury if not better in one week. Patient is appropriate and amenable to discharge home. Vital signs are stable on repeat examination is unremarkable. Patient has been informed of results. Patient has been given strict return to ER precautions for any new or worsening symptoms. Patient understands to follow up closely with outpatient providers as instructed. Patient understands plan and agrees to discharge home. All questions and concerns answered at this time. Discharge Plan Departure Patient Disposition: Home Clinical Impression: Fall Qualifiers: Encounter type: initial encounter Qualified Code(s): W19.XXXA - Unspecified fall, initial encounter Contusion Qualifiers: Encounter type: initial encounter Contusion area: forearm Laterality: right Qualified Code(s): S50.11XA - Contusion of right forearm, initial encounter Right wrist sprain Qualifiers: Encounter type: initial encounter Qualified Code(s): S63.501A - Unspecified sprain of right wrist, initial encounter Fracture of toe of right foot Qualifiers: Encounter type: initial encounter Toe: lesser toe Fracture type: closed Phalanx: distal Fracture alignment: nondisplaced Qualified Code(s): S92.534A - Nondisplaced fracture of distal phalanx of right lesser toe(s), initial encounter for closed fracture Instructions: Contusion, DI for Wrist Sprain, DI for Toe Fracture, DI for Elbow Pain Activity Restrictions/Additional Instructions: *You have been diagnosed with a large bruise on your right forearm from your fall, you have edema and tenderness over the ligaments and tendons reducing your mobility and strength. Please use topical Voltaren gel, Tylenol, and tramadol needed for your pain, lidocaine patches may be helpful as well. For your toe, please wear the postop shoe with a to keep your toes warm, follow-up with your tar worker next week, to the emergency department if your have any any worsening of your right arm swelling, pain, redness, or if you have reduced mobility beyond where it is today. Please call [facility] for an appointment if you are having worsening of your symptoms or are no better after one week. I hope that you feel better soon. *What to do: *Please continue to take your regular medications as directed. [ x] New medication prescriptions sent to your pharmacy: [[facility] ] [ ] New medication written as a paper prescription [ ] No new medications given *Please follow up with your primary care provider in 2-3 days, call for an appointment. Let them know you were seen in the Emergency Department and that we asked that you be seen for follow-up. We will electronically transmit a record of today's note if your PCP is in our system *If you do not have a primary care provider please contact [phone] to establish care with one of the [facility] primary care providers. *Return to Emergency Department if you should have any new, worsening or concerning symptoms, such as [fever greater than 101F, chills, worsening pain, persistent vomiting or other bothersome symptoms] Prescriptions: New diclofenac sodium 3 % gel 1 applic topical BID PRN (Reason: pain) Qty: 100 0RF lidocaine 5 % adhesive patch,medicated 1 patch topical DAILY Qty: 15 0RF Rx Instructions: leave on most painful area for up to 12 hrs No Action Xarelto 20 mg Tablet 20 mg PO DAILY 0RF oxycodone 5 mg tablet 5 - 10 mg PO Q4H PRN (Reason: pain) Qty: 42 0RF Rx Instructions: exempt postop acetaminophen 500 mg tablet 1,000 mg PO Q8HR PRN (Reason: pain) Qty: 60 1RF docusate sodium [Colace] 100 mg capsule 100 mg PO BID Qty: 30 1RF polyethylene glycol 3350 [Miralax] 17 gram powder in packet 17 g PO DAILY PRN (Reason: constipation) Qty: 14 0RF gabapentin 300 mg capsule 300 mg PO TID Qty: 30 1RF cholecalciferol (vitamin D3) [Vitamin D3] 25 mcg (1,000 unit) Tablet 25 mcg PO DAILY 0RF paroxetine HCl 20 mg Tablet 20 mg PO DAILY 0RF metoprolol succinate 25 mg Tablet Extended Release 24 Hr 25 mg PO DAILY 0RF losartan 100 mg Tablet 100 mg PO DAILY 0RF hydroxyzine HCl 25 mg Tablet 25 mg PO QID 0RF Humalog U-100 Insulin 100 unit/mL Cartridge 1 sliding scale dose SUBCUT USEASDIRECTD 0RF famotidine 20 mg Tablet 20 mg PO DAILY 0RF atorvastatin 80 mg Tablet 80 mg PO BEDTIME 0RF amiodarone 200 mg Tablet 200 mg PO DAILY 0RF furosemide [Lasix] 20 mg tablet 20 mg PO DAILY Qty: 3 0RF Referrals: [facility] [Provider Group] Derek Damico MD [Primary Care Provider] - Bernardo Wright DPM [Physician] - 5-7 days <Meena Shay DO - Last Filed: 03/06/22 07:31> Cosign ED Attending Cosignature Attestation: I was immediately available in the department for consultation. Documentation has been reviewed.
== END 2022-02-26 18:00 | disposition home or self-care (01) ==
PROVIDERS: Emergency Provider Nurse Practitioner Critical Care Medicine; PCP Family Medicine
DX: S92.531A Displaced fracture of distal phalanx of right lesser toe(s), initial encounter for closed fracture (principal); S63.501A Unspecified sprain of right wrist, initial encounter; S50.11XA Contusion of right forearm, initial encounter; W01.0XXA Fall on same level from slipping, tripping and stumbling without subsequent striking against object, initial encounter
CPT/HCPCS: 71045; 73090; 73110; 73660; 99283; 99284

== ENCOUNTER → 2022-06-12 09:51 | Outpatient (CLI) | payer OTHER, SELFPAY ==
--- NOTE | 2022-06-12 09:53 | DI.ECHO.S_ITS ---
[facility]---------+ [facility] +---------+ : : [address] [place] : : : : [id number] : : : : Phone: [phone]---------+ Echocardiogram Report + + :Name: ANANT HAYES Study Date: 06/12/2022 Height: 66.5 in: :[facility] ReadingLocation: Weight: 191 lb : : Gender: Female BSA: 2.0 m2 : :: 1940 Age: 81 yrs BP: 151/98 mmHg: :Reason For Study: DYSPNEA : :Ordering Physician: MICKY, : :PARVEZ FLOREZ Performed By: Wilma Cruz : :Referring: PARVEZ WEEKS : + + Interpretation Summary The left ventricle is normal in size and wall thickness. The ejection fraction is estimated to be 45-50%. There is mild global hypokinesis of the left ventricle. The right ventricle is mildly dilated. The right ventricular systolic function is normal. There is a pacemaker lead in the right ventricle. There is severe biatrial enlargement. There is moderate mitral regurgitation. The aortic valve is moderately calcified. There is moderately reduced leaflet mobility. The peak aortic velocity is 1.7 m/sec. The aortic valve mean gradient is 7.0 mmHg. There is no hemodynamically significant valvular aortic stenosis. The tricuspid valve leaflets are thickened and/or calcified, but open well. There is moderate to severe tricuspid regurgitation. The right ventricular systolic pressure is estimated to be at least 40 mmHg based on an estimated right atrial pressure of 3 mm Hg. Procedure: A two-dimensional transthoracic echocardiogram with color flow and Doppler was performed. The study quality was technically adequate. There is no prior echocardiogram noted for this patient. The patient has a paced rhythm. The heart rate ranged between 76-76 bpm during the study. Left Ventricle: The left ventricle is normal in size and wall thickness. There is no thrombus. The ejection fraction is estimated to be 45-50%. There is mild global hypokinesis of the left ventricle. Diastolic function could not be accurately assessed due to paced rhythm. E/E' med: 9.5. Right Ventricle: There is a pacemaker lead in the right ventricle. The right ventricle is mildly dilated. The right ventricular systolic function is normal. Atria: The left atrium is severely dilated. There is severe biatrial enlargement. The right atrium is severely dilated. There is a catheter/pacemaker lead seen in the right atrium. There is no Doppler evidence for an interatrial shunt. Mitral Valve: The mitral valve leaflets appear mildly thickened, but open well. There is mild mitral annular calcification. There is moderate mitral regurgitation. Aortic Valve: The aortic valve is moderately calcified. There is moderately reduced leaflet mobility. There is mild aortic valve sclerosis. The aortic valve is not well visualized. The peak aortic velocity is 1.7 m/sec. The aortic valve mean gradient is 7.0 mmHg. There is no hemodynamically significant valvular aortic stenosis. There is mild aortic regurgitation. Tricuspid Valve: There is tricuspid annular calcification. The tricuspid annulus is dilated. The tricuspid valve leaflets are thickened and/or calcified, but open well. There is moderate to severe tricuspid regurgitation. The right ventricular systolic pressure is estimated to be at least 40 mmHg based on an estimated right atrial pressure of 3 mm Hg. Pulmonic Valve: The pulmonic valve leaflets are thin and pliable; valve motion is normal. There is mild pulmonic regurgitation. Great Vessels: The aortic root is normal size. The dimensions of the ascending aorta are normal. The aortic arch could not be visualized. The IVC is of normal diameter and collapses greater than 50% with a sniff. This suggests a low right atrial pressure of 3 mm Hg. Pericardium/ Pleura There is no pericardial effusion. There is no pleural effusion. MMode/2D Measurements & Calculations LVIDd: 4.5 cm LVOT diam: 2.0 cm LVIDs: 3.7 cm Ao root diam: 3.0 cm FS: 18.1 % asc Aorta Diam: 3.1 cm EPSS: 1.00 cm IVSd: 0.63 cm LVPWd: 1.1 cm LV izquierdo. diameter/BSA (cm/m^2): 2.3 LV sys. diameter/BSA (cm/m^2): 1.9 LA A2 area: 29.8 cm2 RA long axis: 6.5 cm LA A4 area: 28.3 cm2 RA area: 27.9 cm2 LA length (vol): 6.9 cm RA vol: 102.4 ml LA vol: 103.3 ml RA : 51.9 ml/m2 LA vol index: 52.4 ml/m2 IVC diam: 1.4 cm RVD1 (basal): 4.1 cm RVD2 (mid): 3.4 cm TAPSE: 1.8 cm Doppler Measurements & Calculations Ao V2 max: 170.6 cm/sec LVOT Max Dominick: 76.0 cm/sec Ao V2 mean: 126.2 cm/sec LV V1 max P.3 mmHg Ao max P.6 mmHg LV V1 VTI: 14.4 cm Ao mean P.0 mmHg MABLE(I,D): 1.3 cm2 Ao V2 VTI: 34.5 cm MABLE(V,D): 1.4 cm2 sev ratio: 0.42 MABLE indexed to BSA (cm^2/m^2): 0.64 MV E max dominick: 82.8 cm/sec TR max dominick: 304.2 cm/sec MV A max dominick: 1.8 cm/sec TR max P.0 mmHg MV E/A: 47.3 PA pr(Accel): 20.8 mmHg Med Peak E' Dominick: 8.7 cm/sec E/E' med: 9.5 Lat Peak E' Dominick: 9.0 cm/sec E/E' lat: 9.2 E/e' average: 9.3 MV dec time: 0.31 sec SV(LVOT): 43.9 ml Reading Physician:03:00 PM
[2022-06-12 10:51] LABS: COVID19 -Nasal RAPID Negative (Negative)
--- NOTE | 2022-06-12 19:11 | DI.NM.S_ITS ---
DATE OF SERVICE: PROCEDURE: Pharmacological perfusion study. INDICATION: Shortness of breath, history of mid circumflex stent in 2019, paroxysmal atrial fibrillation, pacemaker, diabetes, hypertension, and hyperlipidemia. RADIOPHARMACEUTICAL: 24.6 mCi technetium-99m Myoview IV was injected at stress, and 12.4 mCi technetium-99m Myoview IV was injected at rest. CARDIAC STRESS: The patient underwent IV Lexiscan perfusion study under the supervision of an attending staff using standard Lexiscan protocol. The patient remained hemodynamically stable. Baseline rhythm was ventricular paced rhythm. During stress, no new convincing ischemic changes seen. No new arrhythmias seen. The patient had dyspnea during Lexiscan infusion. No chest pain. Baseline blood pressure was 146/90 mmHg. Remained hemodynamically stable. RAW DATA: There is increased subdiaphragmatic activity. GATED STUDY: Stress LV ejection fraction 70 percent without any obvious wall motion abnormalities. Resting end-diastolic volume 86 mL. TID ratio 1.05, which is within normal limits. Lung/heart ratio 0.17, which is within normal limits. MYOCARDIAL PERFUSION: Stress supine and resting supine images were compared to each other. There are no stress prone images. The stress supine images revealed a small-sized, mildly decreased perfusion of inferior wall and inferior apex. During resting supine, there is a subtle improvement in the distal inferior wall, otherwise almost similar perfusion defect involving inferior wall and inferior apex. CONCLUSION: Mostly fixed small-sized inferior wall and inferior apical defect with subtle reversibility in the distal inferior wall. In absence of prone images, difficult to distinguish between diaphragmatic tissue attenuation artifact versus previous nontransmural myocardial infarction. However, the patient had a perfusion study in June, and, at that time, also, she had similar perfusion defect, which was thought due to diaphragmatic tissue attenuation artifact. There is increased subdiaphragmatic activity. Inferior wall is moving well which goes against the diagnosis of previous transmural myocardial infarction. No significant ischemic burden. Left ventricular function is preserved. Hence, overall this is a low-risk myocardial perfusion study. Anjali Cotton - HECTOR/lynn/PRANEETH doc#: [id number]/job#: [id number] dd: 06/12/2022 17:44:00 dt: 06/12/2022 18:45:00 DICTATING MD/COPIES TO: Zeus Mathis MD COPIES MNE: ELÍAS;
== END ==
PROVIDERS: PCP Family Medicine; Referring Provider Nurse Practitioner Family; Visit Provider Nurse Practitioner Family
DX: I08.3 Combined rheumatic disorders of mitral, aortic and tricuspid valves (principal); I25.10 Atherosclerotic heart disease of native coronary artery without angina pectoris; R06.00 Dyspnea, unspecified; R06.02 Shortness of breath; I48.0 Paroxysmal atrial fibrillation; E11.9 Type 2 diabetes mellitus without complications; I10 Essential (primary) hypertension; E78.5 Hyperlipidemia, unspecified; Z20.822 Contact with and (suspected) exposure to COVID-19; Z95.0 Presence of cardiac pacemaker; Z95.5 Presence of coronary angioplasty implant and graft
CPT/HCPCS: 78452; 87635; 93017; 93306; A9502; J2785